=== PATIENT | female | born 1970 | race Caucasian/White ===

== ENCOUNTER 2017-05-15 15:55 | Outpatient (CLI) | payer BC ==
[2012-07-29 11:01] VITALS: BMI 35.4
== END 2017-05-15 16:34 ==
LOC: D.MAMMO 15:55
DX: Z12.31 Encounter for screening mammogram for malignant neoplasm of breast (principal)

== ENCOUNTER 2018-10-17 08:00 | Outpatient (CLI) | payer BC ==
[2012-07-29 11:01] VITALS: BMI 35.4
== END 2018-10-17 09:00 | disposition home or self-care (01) ==
LOC: D.MAMMO 08:00
DX: Z12.31 Encounter for screening mammogram for malignant neoplasm of breast (principal)

== ENCOUNTER 2019-01-28 06:15 | Day surgery (SDC) | payer BC ==
[2019-01-22 15:34] LABS: BASOPHILS 0.2 % (0-2); EOSINOPHILS 0.8 % (0-7); HEMATOCRIT 33.4 % (36.0-48.0); HEMOGLOBIN 12.2 g/dL (12-16); IMMATURE GRANULOCYTES 0.2 % (0-5); LYMPHOCYTES 32.6 % (15-50); MCHC 36.5 g/dL (31.0-37.0); MEAN PLATELET VOLUME 10.6 fL (7.4-10.4); NEUTROPHILS 53.2 % (40-80); PLATELET COUNT 248 10x3/uL (130-400); RBC 3.93 10x6/uL (4.00-5.40); RDW 12.3 % (11.5-14.5); WBC 4.9 10x3/uL (4.8-10.8)
[2019-01-22 15:45] LABS: ANION GAP 14.3 mmol/L (8-16); CALCIUM 8.5 mg/dL (8.5-10.1); CARBON DIOXIDE 26.7 mmol/L (21.0-32.0); CREATININE - SERUM 1.1 mg/dL (0.6-1.3)
[~2019-01-28] VITALS: Ht 149.9 cm; Wt 77.6 kg
[~2019-01-28 06:15] MED LIST: K-TAB10 MEQ PO; LOZOL1.25 MG PO; MAXALT10 MG PO; MOBIC7.5 MG PO; NORMODYNE / TR200 MG PO; TRIAMT/HCTZ TAB 37.
[2019-01-28 06:51] VITALS: BP 103/79; Ht 149.9 cm; Wt 77.6 kg
[2019-01-28 07:04] LABS: HCG URINE NEGATIVE (NEGATIVE)
--- NOTE | 2019-01-28 09:05 | NUR ---
VAGINAL PREP WITH BETADINE SOLUTION. IMMEDIATELY REALIZED ALLERGY AND NOTIFIED DR. JERNIGAN. WASHED OUT INTERNALLY AND EXTERNALLY WITH HIBICLENS AND SALINE PER DR JERNIGAN. STATED SHE WOULD REPORT TO PT
--- NOTE | 2019-01-28 13:21 | NUR ---
IV REMOVED WITH CATHALON INTACT. HAS EATEN REGULAR TRAY WITH NO NAUSEA. PAIN IS WELL CONTROLLED WITH PERCOCET. ALL DISCHARGE INSTRUCTIONS GIVEN. VOICES UNDERSTANDING. AWAITING RIDE HOME.
--- NOTE | 2019-01-28 17:51 | NUR ---
1710 PT'S RIDE HAS ARRIVED. DC INSTS WERE GIVEN BY DR. JERNIGAN EARLIER AND BY JULIA AMAYA RN, RX WERE GIVEN. PT'S VOICED UNDERSTANDING. RELEASED IN WC.
== END 2019-01-28 17:10 | disposition home or self-care (01) ==
LOC: D.OPS 06:15 → D.PAN 08:15 → D.OPS 08:15
PROVIDERS: Anesthesiology; ATTEND Obstetrics & Gynecology
DX: Z30.2 Encounter for sterilization (principal); Z01.812 Encounter for preprocedural laboratory examination